=== PATIENT | male | born 1980 | race Caucasian/White ===

== ENCOUNTER 2019-04-04 17:09 | Emergency (ER) | payer BC, SELFPAY ==
[2019-04-04 17:13] VITALS: BP 129/77; PULSE 79; RESP 16; TEMP 37.1; O2SAT 97
[2019-04-04] MEDS: Balanced Salt Solution 15 ML BTL OP (17:40)
[2019-04-04] MEDS: Tetracaine 0.5% 4 ML BTL OP (17:40)
[2019-04-04] MEDS: Fluorescein STRIPS 100/BOX 1 MG OP (17:40)
[2019-04-04] MEDS: Erythromycin Ophth Oint 3.5 GM TUBE OP (17:40)
--- NOTE | 2019-04-04 17:49 | ED.GENADUL_ITS ---
Discharge Plan Disposition Patient Disposition: HOME Discharge Details Chief Complaint: EyeProblem Primary Care Provider: Ricarda Rosario ED Provider: Christian Teague Home Meds and New Rx's Prescriptions: No Action ibuprofen 800 MG tablet 800 mg PO Q8H PRN (Reason: Pain) Qty: 15 RF: 0 Discharge Data Discharge Date/Time-TO BE ENTERED AT DEPARTURE: 04/04/19 17:58 Medical Decision Making Patient was grinding metal last night felt a foreign body enter his left eye. Today he is felt irritation and called and arrange [facility] but irritation increased so came to the emergency department for evaluation. Patient has a metallic foreign body in approximately the 9 o'clock position of the cornea with rust ring present. Foreign body was removed with 18-gauge needle but patient blinked before I could remove it from the eye. Eye was irrigated and no further foreign body was visible. Rust ring still remains present so patient encouraged to continue with his appointment as arranged for tomorrow. Patient placed up on erythromycin ointment in the meantime. Return precautions discussed. Tetanus was updated. After discussion of diagnosis and plan of care patient has no further needs, questions, or concerns and states clear understanding to return to the emergency department for any worsening symptoms. HPI General Mode of arrival: ambulatory . Date/Time Provider Initiated Documentation: 04/04/19 17:11 . Limitations to Documentation: no limitations . Information obtained by: patient and RN notes reviewed . History of Present Illness 38 year old M presents to the emergency department with the chief complaint of Foreign body left eye, described as moderate, with intensity rated at 7. Quality is described as burning and aching, and is localized to the eyes and left. Patient started experiencing this day(s) (1) and it has been constant. Patient notes no other symptoms.. Patient did receive the following treatments prior to arrival, none Related Data Home Medications Medication Instructions Recorded Confirmed ibuprofen 800 mg PO Q8H PRN #15 tab 05/21/17 04/04/19 Previous Rx's Medication Instructions Recorded ibuprofen 800 mg PO Q8H PRN #15 tab 05/21/17 Allergies Allergy/AdvReac Type Severity Reaction Status Date / Time No Known Allergies Allergy Verified 07/03/18 09:56 General Stated Complaint: EyeProblem CONTRERAS: 4 Review of Systems Constitutional Denies headache(s) Eyes Reports as per HPI, Denies eye discharge, Denies loss of vision and Denies requires corrective lenses ENT Denies headache(s) and Denies nasal discharge Neurologic Denies headache(s) and Denies loss of vision PFSH Surgical History Vasectomy Social History Alcohol Intake: never Substance use type: does not use Exam Const General: cooperative, no acute distress and not ill appearing Orientation: alert, awake and oriented x3 HENMT Head: normal to inspection Eyes Visual Schrader: normal visual schrader by confrontation Alignment and Position: alignment normal and position normal Eyelids: eyelids normal Conjunctivae: conjunctival abnormality left conjunctival injection diffuse Sclera: sclerae normal Cornea: corneas abnormal on the left fluorescein used and foreign body (9 o'clock) metallic and with rust ring present and fluorescein used Pupils: PERRL, normal by confrontation and accommodation normal EOM: EOM intact bilaterally Resp Effort & Inspection: normal respiratory effort, able to speak in complete sentences and no respiratory distress Skin General skin exam: no rashes or lesions noted Course Vital Signs Temperature 37.1 C 04/04/19 17:13 Pulse 79 04/04/19 17:13 Respiratory Rate 16 04/04/19 17:13 Blood Pressure 129/77 04/04/19 17:13 Pulse Oximetry 97 04/04/19 17:13 Temperature 37.1 C 04/04/19 17:13 Temperature Source Skin 04/04/19 17:13 Pulse 79 04/04/19 17:13 Respiratory Rate 16 04/04/19 17:13 Respiratory Effort Non-Labored 04/04/19 17:13 Blood Pressure 129/77 04/04/19 17:13 Pulse Oximetry 97 04/04/19 17:13 Oxygen Delivery Method Room Air 04/04/19 17:13 Oxygen Flow Rate 0 04/04/19 17:13
== END 2019-04-04 17:58 | disposition home or self-care (01) ==
PROVIDERS: Emergency Provider Nurse Practitioner Family; PCP Family Medicine
DX: T15.02XA Foreign body in cornea, left eye, initial encounter (principal)
CPT/HCPCS: 90471; 99283

== ENCOUNTER 2020-07-09 10:14 | Outpatient (CLI) | payer BC, SELFPAY ==
[2020-07-13 13:36] LABS: Patient Race White; SARS-CoV-2 RNA Undetected (Undetected); SARS-CoV-2 Specimen Source Nasal
== END 2020-07-09 10:34 ==
PROVIDERS: PCP Family Medicine; Visit Provider Emergency Medicine
DX: R50.9 Fever, unspecified (principal)
CPT/HCPCS: U0003

== ENCOUNTER 2022-12-07 16:16 | Outpatient (REF) | payer BC, SELFPAY ==
[2022-12-07 22:11] LABS: COMMENT (LAB VIEW ONLY) 106.38 mg/dL; Microalb ug/mg Crea 4.2 ug/mg Cr
== END 2022-12-07 16:17 | disposition home or self-care (01) ==
LOC: LBN 16:16
PROVIDERS: PCP Nurse Practitioner Family; Visit Provider Nurse Practitioner Family
DX: E11.9 Type 2 diabetes mellitus without complications (principal)
CPT/HCPCS: 82043; 82570

== ENCOUNTER 2023-05-06 21:46 | Emergency (ER) | payer BC, SELFPAY ==
--- NOTE | 2023-05-06 21:45 | DI.CT_ITS ---
Exam(s) CT ABDOMEN PELVIS W EXAM: CT ABDOMEN PELVIS W CLINICAL HISTORY: lower abdominal pain TECHNIQUE: Imaging Protocol: Axial computed tomography images with coronal and sagittal reformatted images were created and reviewed CONTRAST MATERIAL: Intravenous: Omnipaque 350 Contrast volume:100 mL Oral: No COMPARISON: No exams were available for comparison FINDINGS: ABDOMEN: Lung Bases: Calcified granuloma in the right middle lobe. Liver: Normal density. There are 2 round well-circumscribed hypodensities in the liver. The largest measures 5 mm. They are too small for further characterization. No suspicious hepatic lesions are s een at this time. Portal, Superior Mesenteric, and Splenic Veins: Unremarkable. Gallbladder and Biliary Tract: No radiodense calculus or dilation. Pancreas: Normal density, no abnormal calcifications or inflammatory process. Spleen: Normal. Adrenals: No masses seen. Kidneys: Normal size, contour and axis. There is a 3 mm nonobstructing left renal calculus. No juan s seen. Abdominal Aorta: Abdominal portion non-dilated. Minimal atherosclerosis. Bowel: No obstruction or bowel wall thickening. Appendix is unremarkable. There is colonic distention . Peritoneal Cavity: No ascites, collection or mesenteric inflammatory response. No free air. Lymph Nodes: Within normal limits. Bones: Within normal limits for the patient's age. Bone islands are seen in the femurs. Soft Tissues: Unremarkable. There are bilateral fat containing inguinal hernias. PELVIS: Bladder: The urinary bladder is not well distended. There is thickening of the wall of the urinary b ladder. This may be due to underdistention. Cystitis cannot be excluded. Reproductive Organs: Unremarkable as visualized. Lymph Nodes: Within normal limits. Bones: Within normal limits for the patient's age. IMPRESSION: 1. No acute abdominal or pelvic process. Moderate colonic distention without evidence of obstruction . This may represent an ileus. 2. Nonobstructing left renal calculus. RADIATION DOSE DELIVERED: 916.81mGy.cm Total DLP DATA REPOSITORY: All CT scans at this facility are submitted to the National Radiology Data Registry (NRDR) Dose Index Registry (DIR) with the [employer] (A[employer]). RADIATION OPTIMIZATION: All CT scans at this facility use at least one of these dose optimization te chniques: automated exposure control; mA and/or kV adjustment per patient size (includes targeted exa ms where dose is matched to clinical indication); or iterative reconstruction.
[2023-05-06 21:48] VITALS: BP 140/88; PULSE 89; RESP 18; TEMP 36.6; O2SAT 100
--- NOTE | 2023-05-06 21:55 | ED.GENADUL_ITS ---
Discharge Plan Disposition Patient Disposition: Home Condition: Stable Discharge Details Clinical Impression: Abdominal cramping, Abdominal pain Primary Care Provider: Vadim Stone ED Provider: Riley Meyers Home Meds and New Rx's Prescriptions: Continued (DME) blood-glucose meter [OneTouch Ultra2 Meter] Kit See Rx Instructions .Route Qty: 1 2RF Rx Instructions: twice daily (DME) OneTouch Ultra Test Strip See Rx Instructions .Route Qty: 100 3RF Rx Instructions: Twice daily (DME) lancets [BD Ultra Fine Lancets] 33 gauge misc See Rx Instructions .Route Qty: 100 0RF Rx Instructions: Twcie daily ibuprofen 800 MG tablet 800 mg PO Q8H PRN (Reason: Pain) Qty: 15 0RF Patient Comments: pt states no longer taking Discharge Instructions Instructions: Abdominal Pain (ED) Additional Instructions: your labs and imaging did not show concerning findings, you can try taking over the counter gas-x which can help follow up with your primary care provider if symptoms continue if you feel more ill, have severe worsening pain, or persistent vomiting return to the emergency department Medical Decision Making 43 yo male who denies prior abdominal surgeries, has T2DM but it is controlled with diet/exercise, who comes in with cc of lower abdominal cramping. He states he has felt well throughout the day and was laying in bed trying to sleep when he suddenly started to have lower abdominal cramping. Denies n/v, fevers, chills, chest pain, dyspnea. HE has tenderness with palpation in the lower abdomen on both the right and left sides, no upper abdominal tenderness, no distention. He has no testicle pain or urinary symptoms. Given location of his pain will proceed with cbc, cmp, lipase and ct abd/pelvis to evaluate for possible diverticulitis vs appendicitis. labs and imaging unremarkable, ct shows colonic distention without obstruction and possible ileus which I feel is unlikely given his abdomen is not distended. He is stable and still feels crampy and like he has spasms, will try dicyclomine and a dose of ativan pt feeling better no tendernress on exam now, given reassuring workup and stable vitals feel he can be discharged and f/u with his pcp, return precautions given Differential Diagnosis Differential Diagnosis: diverticulitis, appendicitis, colitis, food illness Imaging Data Radiologic Study: Attestation: I personally reviewed and interpreted this imaging study as follows: Imaging: CT Scan Radiologist's impression: IMPRESSION: Colonic distension without obstruction may represent mild ileus Question faint nonobstructing left renal calculus Lab Data Lab results reviewed: Yes I reviewed the patient's lab results. HPI General Mode of arrival: ambulatory . Date/Time Provider Initiated Documentation: 05/06/23 21:51 . Limitations to Documentation: no limitations . Information obtained by: patient . History of Present Illness 43 year old M presents to the emergency department with the chief complaint of lower abdominal cramping, described as moderate, Quality is described as other (cramping), and is localized to the abdomen. Patient reports no radiation. Patient started experiencing this hour(s) (1) and it has been constant. No relieving factors improve symptom(s), No exacerbating factors reported . Patient notes denies chest pain, nausea/vomiting and shortness of breath. Related Data Home Medications Medication Instructions Recorded Confirmed ibuprofen 800 mg tablet 800 mg PO Q8H PRN Pain #15 tabs 05/21/17 05/02/23 blood sugar diagnostic (OneTouch #100 ea 09/08/22 05/02/23 Ultra Test strips) blood-glucose meter (OneTouch #1 ea 09/08/22 05/02/23 Ultra2 Meter kit) lancets 33 gauge (BD Ultra Fine #100 ea 09/08/22 05/02/23 Lancets) Previous Rx's Medication Instructions Recorded ibuprofen 800 mg tablet 800 mg PO Q8H PRN Pain #15 tabs 05/21/17 blood sugar diagnostic (OneTouch #100 ea 09/08/22 Ultra Test strips) blood-glucose meter (OneTouch #1 ea 09/08/22 Ultra2 Meter kit) lancets 33 gauge (BD Ultra Fine #100 ea 09/08/22 Lancets) Allergies Allergy/AdvReac Type Severity Reaction Status Date / Time No Known Allergies Allergy Verified 05/06/23 21:51 General Stated Complaint: Abd Prob CONTRERAS: 3 Review of Systems All systems reviewed & are unremarkable except as noted in HPI and below Constitutional Constitutional: Denies chills, Denies fever(s) and Denies weakness Cardiovascular Cardiovascular: Denies chest pain and Denies dyspnea Respiratory Respiratory: Denies cough and Denies dyspnea Gastrointestinal Gastrointestinal: Reports abdominal pain, Denies nausea and Denies vomiting Genitourinary Genitourinary: Denies dysuria Musculoskeletal Musculoskeletal: Denies joint swelling Neurologic Neurologic: Denies weakness Endocrine Endocrine: Denies cold intolerance PFSH All Active Problems (Updated 05/06/23 @ 23:55 by Riley Meyers MD) Type 2 diabetes mellitus (Acute) Overweight (Acute) Eustachian tube dysfunction (Acute) Abdominal cramping (Acute) Abdominal pain (Acute) Surgical History Vasectomy Social History Smoking/Tobacco Use Status: Never Smoking risk assessment performed?: Yes Alcohol Intake: current Alcohol Intake frequency: a few times a month Alcohol type: hard liquor Substance use type: does not use Caregiver/Support person: No Household members: spouse and children Housing: house Do you need help understanding health information?: Never Pets and animals: Yes Pets and animals: dog(s) Sexually active: Yes Do you think of yourself as: straight/heterosexual Current gender identity: male What is your relationship status?: How often do you talk on the phone with friends or family?: once per week How often do you get together with friends or relatives?: once per week How often do you attend scientologist or restoration services?: decline to answer Do you belong to any clubs or organized social groups?: no Panel score (0-1 are the most socially isolated patients): 1 What type of physical activity do you participate in: walking Duration: 30-45 minutes/day Frequency: 1-2 times per week Vita/Shinto: No preference Special vita needs: No Seatbelt use: always Helmet use: Yes Helmet use: always Drive intox or ride w/intox electric mule driver: No Exam Const General: no acute distress Orientation: alert HENMT Head: normal to inspection Ears: external ears normal General nose exam: external nose normal Mouth: moist mucous membranes Eyes General: appearance normal, both eyes and all related structures Neck Neck: normal visual inspection Resp Effort & Inspection: normal respiratory effort and able to speak in complete sentences Cardio Rate: regular rate GI Palpation: soft and nontender Skin General skin exam: no rashes or lesions noted Neuro General: patient alert and patient oriented x3 Extrem General: normal to inspection Psych Mental Status: mental status grossly normal Course Vital Signs Vital signs: Vital Signs Temperature 36.6 C 05/06/23 21:48 Pulse 89 05/06/23 21:48 Respiratory Rate 18 05/06/23 21:48 Blood Pressure 140/88 05/06/23 21:48 Pulse Oximetry 100 05/06/23 21:48 Temperature 36.6 C 05/06/23 21:48 Temperature Source Skin 05/06/23 21:48 Pulse 89 05/06/23 21:48 Respiratory Rate 18 05/06/23 21:48 Blood Pressure 140/88 05/06/23 21:48 Blood Pressure Position Sitting 05/06/23 21:48 Pulse Oximetry 100 05/06/23 21:48 Oxygen Delivery Method Room Air 05/06/23 21:48 Oxygen Flow Rate 0 05/06/23 21:48 Pain Level 9 05/06/23 21:48
[2023-05-06 22:11] LABS: Abs Immature Grans 0.03 10^3/uL (0.0-0.06); Absolute Basophil Count 0.08 10^3/uL (0.0-0.2); Absolute Eosinophil Count 0.12 10^3/uL (0.0-0.7); Absolute Lymphocyte Count 3.08 10^3/uL (1.2-3.4); Absolute Monocyte Count 0.71 10^3/uL (0.1-0.8); Absolute Neutrophil Count 3.99 10^3/uL (1.2-6.7); Eosinophils % 1.5; HCT 45.2 % (40.0-50.0); HGB 15.3 g/dL (13.5-17.5); Immature Grans % 0.4; Lymphocytes % 38.5; MCH 28.8 pg (27.0-33.0); MCHC 33.8 % (32.0-36.0); MCV 85 fL (80-95); MPV 9.6 fL (8.0-11.0); Monocytes % 8.9; Neutrophils % 49.7; Platelet Count 192 10^3/uL (130-400); RBC 5.31 10^6/uL (4.36-5.78); RDW 11.9 % (11.8-14.1); RDW-SD 36.3 fL; WBC 8.01 10^3/uL (4.4-10.8)
[2023-05-06] MEDS: Normal Saline 1,000 ML 1000 ML IV (22:14)
[2023-05-06] MEDS: Ketorolac 15 MG/ML VIAL IVP (22:15)
[2023-05-06 22:24] LABS: ALT 33 U/L (16-63); AST 13 U/L (15-37); Albumin 4.5 g/dL (3.4-5.0); Alkaline Phosphatase 80 U/L (46-116); Anion Gap 9.6 mmol/L (3-11); BUN 23 mg/dL (7-18); Bilirubin, Total 0.6 mg/dL (0.2-1.0); CO2 28.4 mmol/L (21.0-32.0); Calcium 9.1 mg/dL (8.5-10.1); Chloride 104 mmol/L (98-107); Estimated GFR 96.97 (mL/min/1.73m2); Glucose 132 mg/dL (74-106); Lipase 36 U/L (16-77); Potassium 3.5 mmol/L (3.5-5.1); Sodium 142 mmol/L (136-145); Total Protein 8.1 g/dL (6.4-8.2)
[2023-05-06 22:26] LABS: Magnesium 2.2 mg/dL (1.8-2.4)
[2023-05-06 22:47] LABS: Bilirubin Negative (Negative); Blood Negative (Negative); Clarity Clear (Clear); Glucose Negative (Negative); Ketones Negative (Negative); Leukocyte Esterase Negative (Negative); Nitrite Negative (Negative); Specific Gravity >= 1.030 (1.005-1.025); pH 5.5 (5-8)
[2023-05-06] MEDS: Omnipaque 350 MG/ML 100 ML BTL IJ (22:52)
[2023-05-06] MEDS: Normal Saline Flush 10 ML SYR IVP (22:53)
[2023-05-06] MEDS: Normal Saline - Diluent 50 ML VIAL IJ (22:53)
--- NOTE | 2023-05-06 23:36 | DI.VRAD_ITS ---
PROCEDURE INFORMATION: Exam: CT Abdomen And Pelvis With Contrast Exam date and time: 05/06/2023 10:48 PM Age: 43 years old Clinical indication: Localized; Patient HX: Lower abdominal pain TECHNIQUE: Imaging protocol: Computed tomography of the abdomen and pelvis with contrast. Radiation optimization: All CT scans at this facility use at least one of these dose optimization techniques: automated exposure control; mA and/or kV adjustment per patient size (includes targeted exams where dose is matched to clinical indication); or iterative reconstruction. Contrast material: OMNIPAQUE 350; Contrast volume: 100 ml; Contrast route: INTRAVENOUS (IV); COMPARISON: No relevant prior studies available. FINDINGS: Liver: Fatty infiltration. Faint hypodensities in the liver too small to characterize. Gallbladder and bile ducts: Normal. No calcified stones. No ductal dilation. Pancreas: Normal. No ductal dilation. Spleen: Normal. No splenomegaly. Adrenal glands: Normal. No mass. Kidneys and ureters: Question faint left renal calculus No hydronephrosis. Stomach and bowel: Colonic distention. No obstruction. No mucosal thickening. Appendix: No evidence of appendicitis. Intraperitoneal space: Unremarkable. No free air. No significant fluid collection. Vasculature: Unremarkable. No abdominal aortic aneurysm. Lymph nodes: Unremarkable. No enlarged lymph nodes. Urinary bladder: Unremarkable as visualized. Reproductive: Unremarkable as visualized. Bones/joints: Degenerative changes at the lumbosacral junction. No acute fracture. Soft tissues: Moderate fat containing inguinal hernias IMPRESSION: Colonic distension without obstruction may represent mild ileus Question faint nonobstructing left renal calculus Dictated and Authenticated by: Toy Oviedo MD. Ordering:KALPESH Lin MD
[2023-05-06] MEDS: Dicyclomine 20 MG TAB PO (23:57)
[2023-05-06] MEDS: LORazepam 2 MG/ML VIAL 1 MG IVP (23:57)
== END 2023-05-07 00:30 | disposition home or self-care (01) ==
PROVIDERS: Emergency Provider Emergency Medicine; PCP Nurse Practitioner Family
DX: R10.30 Lower abdominal pain, unspecified (principal); E11.9 Type 2 diabetes mellitus without complications; Z79.899 Other long term (current) drug therapy
CPT/HCPCS: 80053; 83690; 96361; 96374; 99285; 74177; 81003; 83735; 85025; 99283; J1885; J2060; J3490

== ENCOUNTER 2023-10-15 07:43 | Emergency (ER) | payer BC, SELFPAY ==
[2023-10-15 07:48] VITALS: BP 131/73; PULSE 89; RESP 17; TEMP 36.9; O2SAT 99
--- NOTE | 2023-10-15 07:57 | ED.GENADUL_ITS ---
HPI General Date/Time Provider Initiated Documentation: 10/15/23 07:57 . Limitations to Documentation: no limitations . Information obtained by: patient . HPI Narrative: 43-year-old gentleman without significant past medical history presents for evaluation of right-sided chest wall pain. Onset of symptoms last when he slipped and fell on ice. He states that he landed on the edge of his stairs. No other injuries during the fall. Reports his symptoms were pretty sore at that time, but had improved. Last night he sneezed and stated that he felt a pop and that the symptoms of soreness and pain returned. No shortness of breath, but pain with movement and deep breathing. Related Data Home Medications Medication Instructions Recorded Confirmed ibuprofen 800 mg tablet 800 mg PO Q8H PRN Pain #15 tabs 05/21/17 10/15/23 blood sugar diagnostic (OneTouch #100 ea 09/08/22 09/12/23 Ultra Test strips) blood-glucose meter (OneTouch #1 ea 09/08/22 09/12/23 Ultra2 Meter kit) lancets 33 gauge (BD Ultra Fine #100 ea 09/08/22 09/12/23 Lancets) lidocaine 5 % topical patch 1 patch topical DAILY #15 ea 10/15/23 (Lidoderm) meloxicam 7.5 mg tablet 7.5 mg PO DAILY #14 tabs 10/15/23 Previous Rx's Medication Instructions Recorded ibuprofen 800 mg tablet 800 mg PO Q8H PRN Pain #15 tabs 05/21/17 blood sugar diagnostic (OneTouch #100 ea 09/08/22 Ultra Test strips) blood-glucose meter (OneTouch #1 ea 09/08/22 Ultra2 Meter kit) lancets 33 gauge (BD Ultra Fine #100 ea 09/08/22 Lancets) lidocaine 5 % topical patch 1 patch topical DAILY #15 ea 10/15/23 (Lidoderm) meloxicam 7.5 mg tablet 7.5 mg PO DAILY #14 tabs 10/15/23 Allergies Allergy/AdvReac Type Severity Reaction Status Date / Time No Known Allergies Allergy Verified 10/15/23 07:55 General Stated Complaint: Fall/Non TraumaCriteria CONTRERAS: 4 Exam Narrative Exam Narrative: Review of Systems: All systems reviewed & are unremarkable except as noted in HPI and below Well-developed, no acute distress NCAT PERRL, normal conjunctiva RRR, tenderness along the lateral aspect of the ribs, no contusion, no flail chest, no crepitus Unlabored respiratory effort, clear breath sounds bilaterally Nondistended abdomen Extremities w/o deformity, no cyanosis, no edema No rashes or lesions. no focal neurologic deficits Appropriate mood and affect Course Vital Signs Vital signs: Vital Signs Temperature 36.9 C 10/15/23 07:48 Pulse 89 10/15/23 07:48 Respiratory Rate 17 10/15/23 07:48 Blood Pressure 131/73 10/15/23 07:48 Pulse Oximetry 99 10/15/23 07:48 Temperature 36.9 C 10/15/23 07:48 Temperature Source Oral 10/15/23 07:48 Pulse 89 10/15/23 07:48 Respiratory Rate 17 10/15/23 07:48 Respiratory Effort Normal, Non-Labored 10/15/23 07:55 Blood Pressure 131/73 10/15/23 07:48 Blood Pressure Position Sitting 10/15/23 07:48 Pulse Oximetry 99 10/15/23 07:48 Oxygen Delivery Method Room Air 10/15/23 07:48 Oxygen Flow Rate 0 10/15/23 07:48 Medical Decision Making Emergent evaluation of rib pain. After fall. Initial differential includes fracture, contusion, pulmonary contusion less likely. Patient is in no respiratory distress. I do not suspect an acute cardiopulmonary etiology of this chest pain. X-ray of the ribs was obtained, there is no acute fracture. Patient treated with pain medication in the emergency department and provided prescriptions for such. Return precautions advised. Follow-up with PCP as needed. Medical Records Medical records reviewed: Yes I reviewed the patient's medical records. Quality:SDOH Health Related Social Needs: No Data to Display PFSH All Active Problems Contusion of rib (Acute) Tinnitus, right ear (Acute) Eustachian tube dysfunction (Acute) Overweight (Acute) Surgical History Vasectomy Social History Smoking/Tobacco Use Status: Never Second Hand Exposure: No Smoking risk assessment performed?: Yes Alcohol Intake: current Alcohol Intake frequency: holidays/special occasions only Alcohol type: hard liquor Drug use: Never Substance use type: does not use Adopted: No Caregiver/Support person: No Foster care: No Household members: spouse Housing: house Number of Children: 2 Communication Needs: None Education Level: high school Do you need help understanding health information?: Never 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 Pets and animals: Yes Pets and animals: dog(s) Sexually active: Yes Do you think of yourself as: straight/heterosexual Current gender identity: male What is your relationship status?: How often do you talk on the phone with friends or family?: twice per week How often do you get together with friends or relatives?: once per week How often do you attend evangelical or adventist services?: decline to answer Do you belong to any clubs or organized social groups?: yes Panel score (0-1 are the most socially isolated patients): 3 What type of physical activity do you participate in: walking Duration: 45-60 minutes/day Vita/Synagogue: Non latter day Special vita needs: No Agree to transfusion: Yes Seatbelt use: always Helmet use: Yes Helmet use: always Drive intox or ride w/intox distribution driver: No Working smoke detector in home: Yes Carbon monox detector in home: Yes Firearms in home: Yes Firearms unloaded and locked: Yes Do you feel safe at home: Yes Do you feel safe in your relationship?: Yes Victim of physical abuse: No Victim of emotional abuse: No Victim of sexual abuse: No Discharge Plan Disposition Patient Disposition: Home Condition: Good Discharge Details Clinical Impression: Contusion of rib Primary Care Provider: Vadim Stone ED Provider: Lacey Padron [place] Meds and New Rx's Prescriptions: New lidocaine [Lidoderm] 5 % adhesive patch,medicated 1 patch topical DAILY Qty: 15 0RF Rx Instructions: leave on most painful area for up to 12 hrs meloxicam 7.5 mg tablet 7.5 mg PO DAILY Qty: 14 0RF Rx Instructions: with food No Action (DME) blood-glucose meter [OneTouch Ultra2 Meter] Kit See Rx Instructions .Route Qty: 1 2RF Rx Instructions: twice daily (DME) OneTouch Ultra Test Strip See Rx Instructions .Route Qty: 100 3RF Rx Instructions: Twice daily (DME) lancets [BD Ultra Fine Lancets] 33 gauge misc See Rx Instructions .Route Qty: 100 0RF Rx Instructions: Twcie daily ibuprofen 800 MG tablet 800 mg PO Q8H PRN (Reason: Pain) Qty: 15 0RF Patient Comments: pt states no longer taking Discharge Instructions Instructions: Rib Contusion (ED) Additional Instructions: use medications provided, don't use additional NSAIDs with the meloxicam can also take tylenol Discharge Data Discharge Date/Time-TO BE ENTERED AT DEPARTURE: 10/15/23 10:45
[2023-10-15] MEDS: Acetaminophen 500 MG TAB 1000 MG PO (08:09)
[2023-10-15] MEDS: Methocarbamol 500 MG TAB 1000 MG PO (08:09)
--- NOTE | 2023-10-15 09:24 | DI.RAD_ITS ---
Exam(s) XR RIBS RT W PA LAT CHEST EXAM: XR RIBS RT W PA LAT CHEST CLINICAL HISTORY: rightside pain s/p fall TECHNIQUE: 2D digital imaging was performed.Six images were obtained. COMPARISON: No exams were available for comparison FINDINGS: MEDIASTINUM: Normal. HEART: Normal. PULMONARY VASCULATURE: Normal. LUNGS: Clear. PLEURAL SPACE: No pleural effusion or pneumothorax. BONE:Normal. RIGHT RIBS: Normal. OTHER FINDINGS:Normal. IMPRESSION: 1. No acute pulmonary findings. 2. Unremarkable right ribs. DATA REPOSITORY: RADIATION DOSE DELIVERED:
[2023-10-15] MEDS: Lidocaine 5% Patch 1 PATCH TP (10:41)
== END 2023-10-15 10:45 | disposition home or self-care (01) ==
PROVIDERS: Emergency Provider Emergency Medicine; PCP Nurse Practitioner Family
DX: S20.211A Contusion of right front wall of thorax, initial encounter (principal); W00.0XXA Fall on same level due to ice and snow, initial encounter; Y93.01 Activity, walking, marching and hiking; Y92.89 Other specified places as the place of occurrence of the external cause
CPT/HCPCS: 99283; 71046; 71100